=== PATIENT | male | born 1990 ===

== ENCOUNTER 2019-11-02 15:55 | Emergency (ER) | payer SELFPAY ==
--- NOTE | 2019-11-02 16:08 | NUR ---
NA X 1
--- NOTE | 2019-11-02 16:20 | NUR ---
NA X 2
--- NOTE | 2019-11-02 16:36 | NUR ---
NA X 3
== END 2019-11-02 19:44 | disposition left against medical advice (07) ==
LOC: ED 16:32
DX: J34.89 Other specified disorders of nose and nasal sinuses (principal); Z53.21 Procedure and treatment not carried out due to patient leaving prior to being seen by health care provider